=== PATIENT | female | born 1965 | race African-American/Black ===

== ENCOUNTER → 2018-06-18 | Outpatient (CLI) | payer BC, MEDICARE | END | disposition home or self-care (01) | LOC: PCVCCLINIC 11:22 | PROVIDERS: ATTEND Internal Medicine Cardiovascular Disease | DX: R07.9 Chest pain, unspecified (principal); R06.09 Other forms of dyspnea; I10 Essential (primary) hypertension; K21.9 Gastro-esophageal reflux disease without esophagitis; Z79.899 Other long term (current) drug therapy | CPT/HCPCS: 93005; G0463 ==

== ENCOUNTER → 2018-07-03 | Outpatient (CLI) | payer BC, MEDICARE ==
[~2018-07-03] MED LIST: REGADENOSON 0.4 MG/5 ML DISP.SYRIN. IV ONE
--- NOTE | 2018-07-04 13:20 | PCVCIMAG ---
APPROVED REPORT Study performed: 07/03/2018 13:54:36 EXAM: Comprehensive 2D, Doppler, and color-flow Echocardiogram Patient Location: Echo lab Status: routine BSA: 2.04 HR: 82 bpmBP: 136/80 mmHg Rhythm: NSR Other Information Study Quality: Adequate Risk Factors: Cardiac Risk Factors: HTN Indications Dyspnea Chest Pain 2D Dimensions IVSd: 9.93 (7-11mm)LVOT Diam: 20.00 (18-24mm) LVDd: 45.18 mm PWd: 8.74 (7-11mm)Ascending Ao: 26.28 (22-36mm) LVDs: 35.24 (25-40mm) Left Atrium: 34.83 (27-40mm) Aortic Root: 26.46 mm LV Single Plane 4CH: 51.80 % LV Single Plane 2CH: 52.29 % Biplane EF: 51.4 % Volumes Left Atrial Volume (Systole) Single Plane 4CH: 49.37 mLSingle Plane 2CH: 38.81 mL LA ESV Index: 23.00 mL/m2 Aortic Valve AoV Peak Joe.: 1.42 m/s AO Peak Gr.: 8.08 mmHgLVOT Max P.46 mmHg LVOT Max V: 0.93 m/s GHISLAINE Vmax: 2.04 cm2 Mitral Valve E/A Ratio: 1.1 MV Decel. Time: 233.42 ms MV E Max Joe.: 0.85 m/s MV A Joe.: 0.79 m/s IVRT: 51.90 ms TDI E/Lateral E': 8.50E/Medial E': 9.44 Medial E' Joe.: 0.09 m/s Lateral E' Joe.: 0.10 m/s Pulmonary Valve PV Peak Joe.: 0.86 m/sPV Peak Gr.: 2.99 mmHg Pulmonary Vein P Vein S: 0.59 m/sP Vein A: 0.27 m/s P Vein D: 0.45 m/sP Vein A Dur.: 79.6 msec P Vein S/D Ratio: 1.31 Tricuspid Valve TR Peak Joe.: 2.73 m/sRAP Estimate: 7.00 mmHg TR Peak Gr.: 29.74 mmHg PA Pressure: 37.00 mmHg Left Ventricle The left ventricle is normal size. There is normal LV segmental wall motion. There is normal left ventricular wall thickness. Left ventricular systolic function is normal. The left ventricular ejection fraction is within the normal range. LVEF is 50-55%. The left ventricular diastolic function is normal. Right Ventricle The right ventricle is normal size. The right ventricular systolic function is normal. Atria The left atrium size is normal. The right atrium size is normal. Aortic Valve The aortic valve is normal in structure. No aortic regurgitation is present. There is no aortic valvular stenosis. Mitral Valve The mitral valve is normal in structure. Trace to mild mitral regurgitation. No evidence of mitral valve stenosis. Tricuspid Valve The tricuspid valve is normal in structure. Trace tricuspid regurgitation. Pulmonary artery pressure is 37 mmHg. Pulmonic Valve The pulmonary valve is normal in structure. Trace pulmonic regurgitation. Great Vessels The aortic root is normal in size. IVC is normal in size and collapses >50% with inspiration. Pericardium There is no pericardial effusion. <Conclusion> The left ventricle is normal size. There is normal left ventricular wall thickness. Left ventricular systolic function is normal. The left ventricular diastolic function is normal. The right ventricle is normal size. The left atrium size is normal. The aortic valve is normal in structure. Trace to mild mitral regurgitation. Trace tricuspid regurgitation. Pulmonary artery pressure is 37 mmHg.
== END | disposition home or self-care (01) ==
LOC: PCVCIMAG 13:31
PROVIDERS: ATTEND Internal Medicine Cardiovascular Disease
DX: R07.9 Chest pain, unspecified (principal); R06.00 Dyspnea, unspecified; I10 Essential (primary) hypertension
CPT/HCPCS: 93306; J2785